=== PATIENT | male | born 1985 | race Caucasian/White ===

== ENCOUNTER 2021-02-06 10:32 | Emergency (ER) | payer SELFPAY ==
[~2021-02-06] VITALS: Ht 175.3 cm; Wt 85.3 kg
[2021-02-06] MEDS ORDERED: IV NORMAL SALINE 1000ML BAG 1,000 ML IV SCH (11:00)
[2021-02-06] MEDS ORDERED: ONDANSETRON PF 4 MG/2 ML VIAL. IVP ONE (11:00)
[2021-02-06] MEDS ORDERED: IV NORMAL SALINE 1000ML BAG 1,000 ML IV ONE ×2 (11:15→12:00)
--- NOTE | 2021-02-06 11:15 | PHYS DOC ---
Past Medical History Past Medical History: Other Additional Past Medical Histor: psychosis Past Surgical History: No Surgical History Smoking Status: Former Smoker Alcohol Use: None Drug Use: None General Adult EDM: Chief Complaint: NAUSEA/VOMITING/DIARRHA HPI: HPI: Patient is a 35 year old male who presented to ER due to nausea vomiting and abdominal cramping. 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 He woke up this morning with aching all over feeling weak and dehydrated, has been having nausea vomiting with some abdominal cramping, denies any diarrhea yet. Patient denies any fever, no chest pain, no trouble breathing. Review of Systems: Review of Systems: Constitutional: Denies fever or chills. [] Eyes: Denies change in visual acuity. [] HENT: Denies nasal congestion or sore throat. [] Respiratory: Denies cough or shortness of breath. [] Cardiovascular: Denies chest pain or edema. [] GI: Positive for nausea vomiting, abdominal cramping, no diarrhea. : Denies dysuria. [] Musculoskeletal: Denies back pain, positive for body aches joint pain Integument: Denies rash. [] Neurologic: Denies headache, focal weakness or sensory changes. [] Endocrine: Denies polyuria or polydipsia. [] Lymphatic: Denies swollen glands. [] Psychiatric: Denies depression or anxiety. [] Heart Score: C/O Chest Pain: N/A Risk Factors: Risk Factors: DM, Current or recent (<one month) smoker, HTN, HLP, family history of CAD, obesity. Risk Scores: Score 0 - 3: 2.5% MACE over next 6 weeks - Discharge Home Score 4 - 6: 20.3% MACE over next 6 weeks - Admit for Clinical Observation Score 7 - 10: 72.7% MACE over next 6 weeks - Early Invasive Strategies Current Medications: Current Medications Medications (Trade) Dose Ordered Sig/Vance Start Time Stop Time Status Last Admin Dose Admin Ondansetron HCl (Zofran) 4 mg 1X ONCE 02/06/21 11:00 02/06/21 11:02 DC Sodium Chloride 1,000 ml @ 1,000 mls/hr 1X ONCE 02/06/21 11:15 02/06/21 12:14 Allergies: Allergies: Allergies Coded Allergies Type Severity Reaction Last Updated Verified codeine Allergy Severe "my mom says my throat swells up" 08/22/15 No Physical Exam: PE: Constitutional: Well developed, well nourished, no acute distress, non-toxic appearance. [] HENT: Normocephalic, atraumatic, bilateral external ears normal, oropharynx moist, no oral exudates, nose normal. [] Eyes: PERRLA, EOMI, conjunctiva normal, no discharge. [] Neck: Normal range of motion, no tenderness, supple, no stridor. [] Cardiovascular:Heart rate regular rhythm, no murmur [] Lungs & Thorax: Bilateral breath sounds clear to auscultation [] Abdomen: Bowel sounds normal, soft, no tenderness, no masses, no pulsatile masses. [] Skin: Warm, dry, no erythema, no rash. [] Back: No tenderness, no CVA tenderness. [] Extremities: No tenderness, no cyanosis, no clubbing, ROM intact, no edema. [] Neurologic: Alert and oriented X 3, normal motor function, normal sensory function, no focal deficits noted. [] Psychologic: Affect normal, judgement normal, mood normal. [] Current Patient Data: Labs: Laboratory Tests Test 02/06/21 11:00 02/06/21 11:13 Urine Collection Type Unknown Urine Color Brittanie Urine Clarity Clear Urine pH 5.5 Urine Specific Wilmore >=1.030 Urine Protein Negative mg/dL Urine Glucose (UA) Negative mg/dL Urine Ketones (Stick) Trace mg/dL Urine Blood Negative Urine Nitrite Negative Urine Bilirubin Small Urine Urobilinogen Dipstick 1.0 mg/dL Urine Leukocyte Esterase Negative Urine RBC 0 /HPF Urine WBC Rare /HPF Urine Squamous Epithelial Cells Occ /LPF Urine Bacteria 0 /HPF Urine Mucus Slight /LPF White Blood Count 8.3 x10^3/uL Red Blood Count 4.71 x10^6/uL Hemoglobin 14.5 g/dL Hematocrit 42.3 % Mean Corpuscular Volume 90 fL Mean Corpuscular Hemoglobin 31 pg Mean Corpuscular Hemoglobin Concent 34 g/dL Red Cell Distribution Width 12.8 % Platelet Count 285 x10^3/uL Neutrophils (%) (Auto) 67 % Lymphocytes (%) (Auto) 19 % Monocytes (%) (Auto) 10 % Eosinophils (%) (Auto) 3 % Basophils (%) (Auto) 1 % Neutrophils # (Auto) 5.6 x10^3/uL Lymphocytes # (Auto) 1.6 x10^3/uL Monocytes # (Auto) 0.8 x10^3/uL Eosinophils # (Auto) 0.2 x10^3/uL Basophils # (Auto) 0.1 x10^3/uL Sodium Level 139 mmol/L Potassium Level 2.9 mmol/L Chloride Level 102 mmol/L Carbon Dioxide Level 26 mmol/L Anion Gap 11 Blood Urea Nitrogen 17 mg/dL Creatinine 1.2 mg/dL Estimated GFR (Cockcroft-Gault) 68.9 BUN/Creatinine Ratio 14 Glucose Level 84 mg/dL Calcium Level 8.9 mg/dL Total Bilirubin 1.4 mg/dL Aspartate Amino Transf (AST/SGOT) 104 U/L Alanine Aminotransferase (ALT/SGPT) 89 U/L Alkaline Phosphatase 93 U/L Creatine Kinase 2739 U/L Total Protein 7.0 g/dL Albumin 3.8 g/dL Albumin/Globulin Ratio 1.2 Lipase 44 U/L Current Medications Medications (Trade) Dose Ordered Sig/Vance Route PRN Reason Start Time Stop Time Status Last Admin Dose Admin Sodium Chloride 1,000 ml @ 1,000 mls/hr Q1H IV 02/06/21 11:00 02/06/21 11:59 DC 02/06/21 11:17 Ondansetron HCl (Zofran) 4 mg 1X ONCE IVP 02/06/21 11:00 02/06/21 11:02 DC 02/06/21 11:22 Sodium Chloride 1,000 ml @ 1,000 mls/hr 1X ONCE IV 02/06/21 11:15 02/06/21 12:14 DC 02/06/21 11:18 Sodium Chloride 1,000 ml @ 1,000 mls/hr 1X ONCE IV 02/06/21 12:00 02/06/21 12:59 DC 02/06/21 13:05 Potassium Chloride (Klor-Con) 60 meq 1X ONCE PO 02/06/21 12:00 02/06/21 12:01 DC 02/06/21 13:05 Vital Signs: Vital Signs Date Time Temp Pulse Resp B/P (MAP) Pulse Ox O2 Delivery O2 Flow Rate FiO2 02/06/21 10:35 98.4 2 18 139/70 (93) 95 Room Air 98.4 EKG: EKG: [] Radiology/Procedures: Radiology/Procedures: [] Course & Med Decision Making: Course & Med Decision Making Pertinent Labs and Imaging studies reviewed. (See chart for details) Patient is a 35-year-old male who presented to ER due to dehydration, rhabdomyolysis from overexert himself. Patient was found to be low on p otassium, patient was given IV fluids 3 L normal saline, IV nausea medication and potassium supplement, patient felt much better, his kidney function was normal. Patient will be discharged home, advised to stay home for couple days before he resumeS working. Estify Disclaimer: Estify Disclaimer: This electronic medical record was generated, in whole or in part, using a voice recognition dictation system. Departure Departure Impression: Primary Impression: Dehydration after exertion Additional Impressions: Hypokalemia Rhabdomyolysis Disposition: 01 DC HOME SELF CARE/HOMELESS Condition: IMPROVED Referrals: NO PCP (PCP) Follow up with [facility] this week. [address], [address] [place] [address] Phone number: [phone] Patient Instructions: Dehydration, Adult, Hypokalemia, Rhabdomyolysis Additional Instructions: Thank you for visiting our Emergency Department. We appreciate you trusting us with your care. If any additional problems come up don't hesitate to return to visit us. Please follow up with your primary care provider so they can plan additional care if needed and know about the problem that you had. If symptoms worsen come back to the Emergency Department. Any concerning symptoms that start such as chest pain, shortness of air, weakness or numbness on one side of the body, running high fevers or any other concerning symptoms return to the ER. MATIAS COLORADO DO Feb 06, 2021 11:15
[2021-02-06 11:20] LABS: BASO # 0.1 x10^3/uL (0.0-0.2); BASO % 1 % (0-3); EOS # 0.2 x10^3/uL (0.0-0.7); EOS % 3 % (0-3); HEMATOCRIT 42.3 % (39.0-53.0); HEMOGLOBIN 14.5 g/dL (13.0-17.5); LYMPH # 1.6 x10^3/uL (1.0-4.8); LYMPH % 19 % (24-48); MEAN CORPUSCULAR HEMOGLOBIN 31 pg (25-35); MEAN CORPUSCULAR HGB CONC 34 g/dL (31-37); MEAN CORPUSCULAR VOLUME 90 fL (79-100); MONO # 0.8 x10^3/uL (0.0-1.1); MONO % 10 % (0-9); NEUT # 5.6 x10^3/uL (1.8-7.7); NEUT % 67 % (31-73); PLATELET COUNT 285 x10^3/uL (140-400); RED BLOOD COUNT 4.71 x10^6/uL (4.30-5.70); RED CELL DISTRIBUTION WIDTH 12.8 % (11.5-14.5); WHITE BLOOD COUNT 8.3 x10^3/uL (4.0-11.0)
[2021-02-06 11:22] LABS: BILIRUBIN,URINE SMALL (NEG); CLARITY,URINE CLEAR; COLOR,URINE AMBER; NITRITE,URINE NEGATIVE (NEG); PH,URINE 5.5 (<5.0-8.0); PROTEIN,URINE NEGATIVE (NEG-TRACE)
[2021-02-06 11:25] LABS: BACTERIA,URINE 0 /HPF (0-FEW); RBC,URINE 0 /HPF (0-2); WBC,URINE RARE /HPF (0-4)
[2021-02-06 11:47] LABS: ALBUMIN 3.8 g/dL (3.4-5.0); ALBUMIN/GLOBULIN RATIO 1.2 (1.0-1.7); CALCIUM 8.9 mg/dL (8.5-10.1); CREATININE 1.2 mg/dL (0.7-1.3); GFR 68.9; TOTAL BILIRUBIN 1.4 mg/dL (0.2-1.0)
[2021-02-06 11:50] LABS: POTASSIUM 2.9 mmol/L (3.5-5.1)
[2021-02-06] MEDS ORDERED: POTASSIUM CHLORIDE 20 MEQ TABLET.ER. PO ONE (12:00)
[2021-02-06 14:54] VITALS: BP 104/59
== END 2021-02-06 15:00 | disposition home or self-care (01) ==
LOC: ER 10:32
DX: E86.0 Dehydration (principal); M62.82 Rhabdomyolysis; E87.6 Hypokalemia; R11.2 Nausea with vomiting, unspecified; R10.9 Unspecified abdominal pain; Z87.891 Personal history of nicotine dependence
CPT/HCPCS: 36415; 80053; 81001; 82550; 83690; 85025; 96361; 96374; 99285; J2405; J7030

== ENCOUNTER 2021-02-09 14:52 | Emergency (ER) | payer SELFPAY ==
[~2021-02-09] VITALS: Ht 175.3 cm; Wt 78.0 kg
[2021-02-09 15:06] VITALS: BP 139/73
--- NOTE | 2021-02-09 16:25 | RAD ---
US DPLX VENOUS EXTREMITY LOWER RT 02/09/2021 3:46 PM Clinical Information: Pain and swelling behind the right knee Comparison: None. Technique: Multiple grayscale, color Doppler, and spectral Doppler sonographic images of the lower ex tremity venous structures were obtained. Findings: The right common femoral, femoral, and popliteal veins exhibit normal compression, respiratory phasic ity, and augmentation. No intraluminal thrombi are identified. Color Doppler flow is demonstrated in the right posterior tibial veins. There is a posterior popliteal fluid collection measuring 6.1 x 2.4 x 1.9 cm with internal debris and septations. No internal vascularity is visualized. Greater saphenous veins are patent at the saphenofemoral junction. Impression: 1. No evidence of deep venous thrombosis. 2. Posterior popliteal fluid collection debris and septations measures 6.1 x 2.4 x 1.9 cm. MRI of the knee could be of benefit for further evaluation, although primary consideration may be given for a c omplex Haider's cyst. Electronically signed by: Stefanie Jeffries MD (02/09/2021 4:23 PM) LEAH
--- NOTE | 2021-02-09 16:29 | ED.ADGEN ---
Past Medical History Past Medical History: Other Additional Past Medical Histor: psychosis Past Surgical History: No Surgical History Smoking Status: Never Smoker Alcohol Use: None Drug Use: None General Adult EDM: Chief Complaint: KNEE INJURY HPI: HPI: Patient is a 35 year old male who presents emergency department with complaints of pain behind his right knee for the last 10 days. Patient denies any known injury. He states that the back of his right knee feels swollen and he has pain when he is kneeling. 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 He denies any numbness, tingling, or decreased range of motion of the right extremity. He currently rates his pain a 10 out of 10 on pain scale, he denies any alleviating factors, the pain is worse with palpation and movement. Review of Systems: Review of Systems: Complete ROS is negative unless otherwise noted in HPI. Allergies: Allergies: Allergies Coded Allergies Type Severity Reaction Last Updated Verified codeine Allergy Severe "my mom says my throat swells up" 08/22/15 No Physical Exam: PE: See Above Constitutional: Well developed, well nourished, no acute distress, non-toxic appearance. [] HENT: Normocephalic, atraumatic, bilateral external ears normal, nose normal. [] Eyes: PERRLA, EOMI, conjunctiva normal, no discharge. [] Neck: Normal range of motion, no stridor. [] Cardiovascular:Heart rate regular rhythm Lungs & Thorax: Respirations even and unlabored, no retractions, no respiratory distress Skin: Warm, dry, no erythema, no rash. [] Extremities: Right knee: No anterior tenderness to palpation, no anterior swelling, no crepitus, swelling to posterior right knee without palpable mass, no cyanosis, ROM intact, 2+ pedal pulse Neurologic: Alert and oriented X 3, normal motor, normal sensory, no focal deficits noted. [] Psychologic: Affect normal, judgement normal, mood normal. [] Current Patient Data: Vital Signs: Vital Signs Date Time Temp Pulse Resp B/P (MAP) Pulse Ox O2 Delivery O2 Flow Rate FiO2 02/09/21 15:06 98.5 80 16 139/73 (95) 98 Room Air 98.5 EKG: EKG: [] Heart Score: C/O Chest Pain: No Risk Factors: Risk Factors: DM, Current or recent (<one month) smoker, HTN, HLP, family history of CAD, obesity. Risk Scores: Score 0 - 3: 2.5% MACE over next 6 weeks - Discharge Home Score 4 - 6: 20.3% MACE over next 6 weeks - Admit for Clinical Observation Score 7 - 10: 72.7% MACE over next 6 weeks - Early Invasive Strategies Radiology/Procedures: Radiology/Procedures: PROCEDURE: VENOUS LOWER EXTREMITY RIGHT US DPLX VENOUS EXTREMITY LOWER RT 02/09/2021 3:46 PM Clinical Information: Pain and swelling behind the right knee Comparison: None. Technique: Multiple grayscale, color Doppler, and spectral Doppler sonographic images of the lower extremity venous structures were obtained. Findings: The right common femoral, femoral, and popliteal veins exhibit normal compression, respiratory phasicity, and augmentation. No intraluminal thrombi are identified. Color Doppler flow is demonstrated in the right posterior tibial veins. There is a posterior popliteal fluid collection measuring 6.1 x 2.4 x 1.9 cm with internal debris and septations. No internal vascularity is visualized. Greater saphenous veins are patent at the saphenofemoral junction. Impression: 1. No evidence of deep venous thrombosis. 2. Posterior popliteal fluid collection debris and septations measures 6.1 x 2.4 x 1.9 cm. MRI of the knee could be of benefit for further evaluation, although primary consideration may be given for a complex Haider's cyst. Electronically signed by: Stefanie Jeffries MD (02/09/2021 4:23 PM) [facility] Course & Med Decision Making: Course & Med Decision Making Pertinent Labs and Imaging studies reviewed. (See chart for details) Patient presented with atraumatic right knee pain and posterior swelling, ultrasound revealed collection of fluid behind the right knee, likely Haider's cyst. I encouraged patient to wear compression knee sleeve as tolerated. Advised him to take Tylenol or ibuprofen as needed for pain. I encouraged him to follow-up with Dr. Rudolph or his primary care doctor for further evaluation and treatment of what is likely to be a Haider's cyst. I encouraged him to return to the ER if symptoms worsened or fever develop. Patient was provided with a work note to excuse him for 1 to 2 days. Patient verbalized an understanding of home care, medications, follow-up, and return to ED instructions and was in agreement with the plan of care. [] Dragon Disclaimer: Dragon Disclaimer: This electronic medical record was generated, in whole or in part, using a voice recognition dictation system. Departure Departure Impression: Primary Impression: Haider's cyst of knee Disposition: 01 DC HOME SELF CARE/HOMELESS Condition: STABLE Referrals: NO PCP (PCP) NARA RUDOLPH MD Patient Instructions: Haider's Cyst Additional Instructions: Tylenol or ibuprofen as needed for pain. Activity as tolerated. Follow the instructions provided.. Recommend application of ice, elevation, and rest of affected extremity. Follow-up with Dr. Rudolph for further evaluation and treatment. Return to the ER if your symptoms worsen. Problem Qualifiers Primary Impression: Haider's cyst of knee Laterality: right Qualified Codes: M71.21 - Synovial cyst of popliteal space [Haider], right knee TERESO BUNDY APRN Feb 09, 2021 16:29
== END 2021-02-09 16:49 | disposition home or self-care (01) ==
LOC: ER 14:52
DX: M71.21 Synovial cyst of popliteal space [Baker], right knee (principal)
CPT/HCPCS: 93971; 99284